=== PATIENT | male | born 1995 | race African-American/Black ===

== ENCOUNTER 2016-10-09 09:53 | Emergency (ER) | payer OTHER ==
[~2016-10-09] VITALS: Ht 180.3 cm; Wt 77.0 kg
[2016-10-09 10:13] VITALS: BP 120/76
[2016-10-09] MEDS ORDERED: KETOROLAC 30 MG/1 ML IM ONE (11:30)
[2016-10-09] MEDS ORDERED: KETOROLAC 30 MG/1 ML ONE (11:58)
== END 2016-10-09 12:59 | disposition home or self-care (01) ==
LOC: ED 12:58
DX: S83.422A Sprain of lateral collateral ligament of left knee, initial encounter (principal); X58.XXXA Exposure to other specified factors, initial encounter; Y93.89 Activity, other specified; Y92.89 Other specified places as the place of occurrence of the external cause; Y99.8 Other external cause status
CPT/HCPCS: 73564; 96372; 99284; J1885